=== PATIENT | male | born 1975 | race Caucasian/White ===

== ENCOUNTER 2022-09-26 21:08 | Observation (INO) ==
[2022-09-26 21:58] LABS: Basophils % (auto) 1.2 %; Eosinophils # (auto) 0.37 K/uL (0-0.50); Eosinophils % (auto) 4.3 %; Hematocrit (blood only) 41.2 % (42.0-52.0); Hemoglobin 14.8 g/dl (14.0-18.0); Immature Granulocytes # (auto) 0.02 K/uL (0.01-0.20); Immature Granulocytes % (auto) 0.2 %; Lymphocytes # (auto) 2.76 K/uL (1.2-3.4); Lymphocytes % (auto) 32.2 %; Mean Corpuscular Hemoglobin 32.2 pg (25.0-34.0); Mean Corpuscular Hgb Conc 35.9 g/dL (32.0-36.0); Mean Corpuscular Volume 89.8 fL (80.0-100.0); Mean Platelet Volume 9.5 fL (9.4-12.4); Monocytes # (auto) 0.73 K/uL (0.11-0.59); Monocytes % (auto) 8.5 %; Neutrophils % (auto) 53.6 %; Platelet Count 198 K/uL (130-400); RDW Coefficient of Variation 12.3 % (11.5-14.5); RDW Standard Deviation 40.2 fL (36.4-46.3); Red Blood Count 4.59 M/uL (4.70-6.10); White Blood Count 8.58 K/ul (4.8-10.8)
[2022-09-26] MEDS ORDERED: KETOROLAC TROMETHAMINE 60 MG/2 ML VIAL IM STA (21:59)
[2022-09-26 22:27] LABS: Appearance Urine Clear (Clear); Bilirubin Urine Negative (Negative); Blood Urine Negative (Negative); Color Urine Yellow; Glucose Urine UA Negative (Negative); Ketones Urine Negative (Negative); Leukocyte Esterase Urine Negative (Negative); Nitrite Urine Negative (Negative); Protein Urine Negative (Negative); Specific Gravity Urine 1.025 (1.000-1.030); Urobilinogen Urine Negative (Negative); pH Urine 5.5 (4.5-7.5)
[2022-09-26 22:45] LABS: Albumin Globulin Ratio 1.3 (0.9-2); BUN Creatinine Ratio 17.9 (10-20); Bilirubin,Total 0.4 mg/dl (0.2-1.0); Calcium 8.9 mg/dl (8.6-10.3); Creatinine Clr Calc Pharmacy 158.1 ml/min; Est GFR (African American) 122.6 ml/min; Est GFR (Non-African American) 105.7 ml/min
[2022-09-26] MEDS ORDERED: dexAMETHasone**PF** 10 MG/ML VIAL IV ONE (22:45)
[2022-09-26] MEDS ORDERED: MoRPHine SULFATE 10 MG/ML CARP/VIAL IV STA (22:45)
[2022-09-26] MEDS ORDERED: ONDANSETRON INJ 2 MG/ML 2 ML VIAL IV STA (22:46)
--- NOTE | 2022-09-26 22:51 | Emergency Department Note ---
Impression & Plan Strain of lumbar region, Muscle spasm, Intractable low back pain ED Provider Note CHIEF COMPLAINT: Low back pain HISTORY OF PRESENT ILLNESS: This 46-year-old male patient presents to the [facility] department via ambulance complaining of pain in the low back which began about 1 week ago when he was out digging holes in the yard for poles. The pain was gradual in onset, is now constant and worse with movement. The patient has been having difficulty getting out of bed throughout the day today. He was able to get out of bed and go to the bathroom, but has not wanted to due to the pain and reported spasms. The patient notes the pain as aching and spasming and a 10/10. The patient has taken naproxen without relief of the pain. He states last night, he did take some Flexeril with minimal improvement. The patient denies any loss of control of their bowel or bladder functions. There has been no leg numbness or weakness, and no change in sensation. No nausea or vomiting or abdominal pain. No chest pain or shortness of breath. The patient has been experiencing difficulties with his back since he was in the as a teenager and [facility] He states he normally goes to physical therapy for his pain had prior back injuries with some improvement. He has not scheduled a follow-up appointment yet. No dysuria or increased urinary frequency. The patient denies IV drug use. He denies any difficulty getting or maintaining an erection. REVIEW OF SYSTEMS: A 10 system review of systems was performed with positives and pertinent negatives listed in the history of present illness. All other systems were reviewed and are negative. ALLERGIES: None PHYSICAL EXAM: VITALS: Vitals are noted on the nurse's note and reviewed by myself. Vital signs stable. GENERAL: This is a 46-year-old obese white male, in no acute distress, nondiaphoretic, well-developed well-nourished. SKIN: The skin was without rashes, erythema, edema, or bruising. Capillary refi ll less than 2 seconds. NECK: Supple without nuchal rigidity. No cervical spine tenderness. No paraspinous muscle tenderness. HEART: Regular rate and rhythm without murmurs gallops or rubs. LUNGS: Clear to auscultation bilaterally without wheezes, rales or rhonchi. ABDOMEN: Positive bowel sounds x 4. Normal tympanic percussion. Soft, nontender, without masses or organomegaly. Palmer sign negative. MUSCULOSKELETAL: No muscle atrophy, erythema, or edema noted of the back. There is no tenderness over the lumbar spinous processes. There is tenderness over the paraspinous muscles left greater than right. There is no tenderness over the thoracic spine or paraspinous muscles. There are muscle spasms present. The patient is slow to move around with maximum tenderness with sitting from a lying position. Negative bilateral straight leg raise test. NEURO: Patient was alert and oriented to person place and time. Normal sensation to light and sharp touch. Deep tendon reflexes 2+ in the lower extremities. Dorsalis pedis pulse 2+ bilaterally. Strength 5/5 and equal in the bilateral lower extremities. RADIOLOGY: X-ray lumbar spine, interpreted by myself: No acute fracture or subluxation EMERGENCY DEPARTMENT COURSE: This 46-year-old male patient was seen and evaluated as above. No neurologic symptoms or evidence of cauda equina syndrome or epidural abscess. X-rays performed reviewed by myself as noted. IV access was obtained, labs drawn. Labs reviewed by me. No leukocytosis or anemia. Renal, hepatic function and electrolytes without significant abnormality. Urinalysis without blood or evidence of infection. Patient was medicated with IV Toradol. The patient was subsequently medicated with IV Decadron, morphine, Zofran, and fluids. Nursing staff attempted to ambulate the patient and was unsuccessful. They note the patient reported severe muscle spasms with attempts to ambulate. Patient was medicated with IV Ativan and acetaminophen. Additional attempts made to ambulate the patient. He became diaphoretic and was having difficulty with ambulation again due to complaints of muscle spasms in the low back the patient was monitored here in the emergency department. Multiple attempts were made to repeat ambulation and were unsuccessful. Due to the ambulatory dysfunction and intractable back pain, I do recommend inpatient treatment. The patient [facility] be [facility]. I did discuss case with Dr. Fan. Please see hospitalist dictation regarding ongoing management care of this patient Differential diagnosis include musculoskeletal, disc herniation, fracture, metastatic disease, cord compression, discitis, sciatica, cauda equina, infection, aortic disease, renal colic, gastrointestinal, as well as other pathologies. I attest that I have personally reviewed the patient's current medication list. Patient was found to have normal blood pressure on screening and does not require follow-up. The chart was completed utilizing [employer] Speech voice recognition software. Grammatical errors, random word insertions, pronoun errors, and incomplete sentences are an occasional consequence of this system due to software limitations, ambient noise, and hardware issues. Any formal questions or concerns about the content, text, or information contained within the body of this dictation should be directly addressed to the provider for clarification. Past Med/Surg History Medical History Chronic back pain Social History Smoking Status: Current some day smoker Cigarettes Per Day: 1-2; Second Hand Exposure: Yes; Do You Dip or Chew Tobacco: No; Tobacco Cessation Education Requested by Patient: No Hx Alcohol Use: Yes Alcohol type: beer and wine Hx Substance Use: No Preferred Language: Greenlandic Communication Ability: Effective Meeting Facilitator Required: No Beliefs That Will Affect Care: None Current Living Situation: Spouse and Family Other Information That Helps Us Care for You: No Feels Safe at Home: Yes Safety Concerns: Feels Safe At This Time Assistive Devices: None Allergies Allergies Allergy/AdvReac Type Severity Reaction Status Date / Time No Known Allergies Allergy Unverified 09/26/22 22:45 Home Meds Home Medications Medication Instructions Recorded Confirmed No Known Home Medications 09/26/22 09/26/22 Results & Data (ED) Vital Signs Vital Signs - 24 hr 09/26/22 21:08 09/26/22 21:19 09/26/22 21:20 Temperature 36.8 C Temperature Source Oral Pulse Rate 69 69 Pulse Rate [Right Finger] 65 Pulse Rate from SpO2 Sensor Pulse Rhythm Regular Regular Pulse Strength Normal Respiratory Rate 20 24 19 Respiratory Effort / Characteristics Non-Labored Spontaneous Non-Labored Spontaneous Respiratory Depth Normal Normal Respiratory Pattern Regular Regular Blood Pressure 169/109 H Blood Pressure [Left Arm] 163/109 H Blood Pressure Mean 129 Blood Pressure Mean [Left Arm] 127 Blood Pressure Position Lying Blood Pressure Position [Left Arm] Lying Pulse Oximetry 93 92 91 Oxygen Delivery Method Room Air Room Air Room Air Oxygen Flow Rate Sepsis Recent Fever Within 48 Hours No Sepsis New/Unexplained Change in Mental Status No Sepsis Action Taken by Nursing No Action Required Oxygen Flow Rate - Titration Pulse Oximetry Post Tiitration 09/26/22 21:24 09/26/22 21:16 09/26/22 21:20 Temperature Temperature Source Pulse Rate 69 70 65 Pulse Rate [Right Finger] Pulse Rate from SpO2 Sensor 71 66 Pulse Rhythm Pulse Strength Respiratory Rate 19 25 H 24 Respiratory Effort / Characteristics Respiratory Depth Respiratory Pattern Blood Pressure Blood Pressure [Left Arm] Blood Pressure Mean Blood Pressure Mean [Left Arm] Blood Pressure Position Blood Pressure Position [Left Arm] Pulse Oximetry 91 93 94 Oxygen Delivery Method Room Air Oxygen Flow Rate Sepsis Recent Fever Within 48 Hours Sepsis New/Unexplained Change in Mental Status Sepsis Action Taken by Nursing Oxygen Flow Rate - Titration Pulse Oximetry Post Tiitration 09/26/22 21:30 09/26/22 21:30 09/26/22 21:40 Temperature Temperature Source Pulse Rate 67 68 Pulse Rate [Right Finger] Pulse Rate from SpO2 Sensor 67 67 Pulse Rhythm Pulse Strength Respiratory Rate 21 21 Respiratory Effort / Characteristics Respiratory Depth Respiratory Pattern Blood Pressure 124/83 Blood Pressure [Left Arm] Blood Pressure Mean 96 Blood Pressure Mean [Left Arm] Blood Pressure Position Blood Pressure Position [Left Arm] Pulse Oximetry 92 91 Oxygen Delivery Method Oxygen Flow Rate Sepsis Recent Fever Within 48 Hours Sepsis New/Unexplained Change in Mental Status Sepsis Action Taken by Nursing Oxygen Flow Rate - Titration Pulse Oximetry Post Tiitration 09/26/22 21:50 09/26/22 22:00 09/26/22 22:00 Temperature Temperature Source Pulse Rate 68 64 Pulse Rate [Right Finger] Pulse Rate from SpO2 Sensor 67 65 Pulse Rhythm Pulse Strength Respiratory Rate 25 H 29 H Respiratory Effort / Characteristics Respiratory Depth Respiratory Pattern Blood Pressure 138/90 Blood Pressure [Left Arm] Blood Pressure Mean 106 Blood Pressure Mean [Left Arm] Blood Pressure Position Blood Pressure Position [Left Arm] Pulse Oximetry 91 92 Oxygen Delivery Method Oxygen Flow Rate Sepsis Recent Fever Within 48 Hours Sepsis New/Unexplained Change in Mental Status Sepsis Action Taken by Nursing Oxygen Flow Rate - Titration Pulse Oximetry Post Tiitration 09/26/22 22:10 09/26/22 22:20 09/26/22 22:30 Temperature Temperature Source Pulse Rate 65 66 Pulse Rate [Right Finger] Pulse Rate from SpO2 Sensor 65 67 Pulse Rhythm Pulse Strength Respiratory Rate 23 29 H Respiratory Effort / Characteristics Respiratory Depth Respiratory Pattern Blood Pressure 129/80 Blood Pressure [Left Arm] Blood Pressure Mean 96 Blood Pressure Mean [Left Arm] Blood Pressure Position Blood Pressure Position [Left Arm] Pulse Oximetry 91 90 Oxygen Delivery Method Oxygen Flow Rate Sepsis Recent Fever Within 48 Hours Sepsis New/Unexplained Change in Mental Status Sepsis Action Taken by Nursing Oxygen Flow Rate - Titration Pulse Oximetry Post Tiitration 09/26/22 22:30 09/26/22 22:40 09/26/22 22:50 Temperature Temperature Source Pulse Rate 66 66 64 Pulse Rate [Right Finger] Pulse Rate from SpO2 Sensor 65 65 65 Pulse Rhythm Pulse Strength Respiratory Rate 17 17 20 Respiratory Effort / Characteristics Respiratory Depth Respiratory Pattern Blood Pressure Blood Pressure [Left Arm] Blood Pressure Mean Blood Pressure Mean [Left Arm] Blood Pressure Position Blood Pressure Position [Left Arm] Pulse Oximetry 92 93 93 Oxygen Delivery Method Oxygen Flow Rate Sepsis Recent Fever Within 48 Hours Sepsis New/Unexplained Change in Mental Status Sepsis Action Taken by Nursing Oxygen Flow Rate - Titration Pulse Oximetry Post Tiitration 09/26/22 23:00 09/26/22 23:00 09/26/22 23:10 Temperature Temperature Source Pulse Rate 64 69 Pulse Rate [Right Finger] Pulse Rate from SpO2 Sensor 64 69 Pulse Rhythm Pulse Strength Respiratory Rate 28 H 20 Respiratory Effort / Characteristics Respiratory Depth Respiratory Pattern Blood Pressure 135/77 Blood Pressure [Left Arm] Blood Pressure Mean 96 Blood Pressure Mean [Left Arm] Blood Pressure Position Blood Pressure Position [Left Arm] Pulse Oximetry 93 90 Oxygen Delivery Method Oxygen Flow Rate Sepsis Recent Fever Within 48 Hours Sepsis New/Unexplained Change in Mental Status Sepsis Action Taken by Nursing Oxygen Flow Rate - Titration Pulse Oximetry Post Tiitration 09/26/22 23:28 09/26/22 23:30 09/26/22 23:40 Temperature Temperature Source Pulse Rate 64 63 65 Pulse Rate [Right Finger] Pulse Rate from SpO2 Sensor 64 63 61 Pulse Rhythm Pulse Strength Respiratory Rate 18 20 16 Respiratory Effort / Characteristics Respiratory Depth Respiratory Pattern Blood Pressure Blood Pressure [Left Arm] Blood Pressure Mean Blood Pressure Mean [Left Arm] Blood Pressure Position Blood Pressure Position [Left Arm] Pulse Oximetry 94 90 89 L Oxygen Delivery Method Oxygen Flow Rate Sepsis Recent Fever Within 48 Hours Sepsis New/Unexplained Change in Mental Status Sepsis Action Taken by Nursing Oxygen Flow Rate - Titration Pulse Oximetry Post Tiitration 09/26/22 23:49 09/26/22 23:49 09/26/22 23:50 Temperature Temperature Source Pulse Rate 63 64 Pulse Rate [Right Finger] Pulse Rate from SpO2 Sensor 63 63 Pulse Rhythm Pulse Strength Respiratory Rate 13 14 Respiratory Effort / Characteristics Respiratory Depth Respiratory Pattern Blood Pressure 148/88 H Blood Pressure [Left Arm] Blood Pressure Mean 108 Blood Pressure Mean [Left Arm] Blood Pressure Position Blood Pressure Position [Left Arm] Pulse Oximetry 94 93 Oxygen Delivery Method Oxygen Flow Rate Sepsis Recent Fever Within 48 Hours Sepsis New/Unexplained Change in Mental Status Sepsis Action Taken by Nursing Oxygen Flow Rate - Titration Pulse Oximetry Post Tiitration 09/27/22 00:00 09/27/22 00:00 09/27/22 00:10 Temperature Temperature Source Pulse Rate 58 L 55 L Pulse Rate [Right Finger] Pulse Rate from SpO2 Sensor 59 L 55 L Pulse Rhythm Pulse Strength Respiratory Rate 15 11 L Respiratory Effort / Characteristics Respiratory Depth Respiratory Pattern Blood Pressure 124/81 Blood Pressure [Left Arm] Blood Pressure Mean 95 Blood Pressure Mean [Left Arm] Blood Pressure Position Blood Pressure Position [Left Arm] Pulse Oximetry 93 93 Oxygen Delivery Method Oxygen Flow Rate Sepsis Recent Fever Within 48 Hours Sepsis New/Unexplained Change in Mental Status Sepsis Action Taken by Nursing Oxygen Flow Rate - Titration Pulse Oximetry Post Tiitration 09/27/22 00:20 09/27/22 00:30 09/27/22 00:30 Temperature Temperature Source Pulse Rate 55 L 62 Pulse Rate [Right Finger] Pulse Rate from SpO2 Sensor 56 L 61 Pulse Rhythm Pulse Strength Respiratory Rate 12 14 Respiratory Effort / Characteristics Respiratory Depth Respiratory Pattern Blood Pressure 119/72 Blood Pressure [Left Arm] Blood Pressure Mean 87 Blood Pressure Mean [Left Arm] Blood Pressure Position Blood Pressure Position [Left Arm] Pulse Oximetry 93 95 Oxygen Delivery Method Oxygen Flow Rate Sepsis Recent Fever Within 48 Hours Sepsis New/Unexplained Change in Mental Status Sepsis Action Taken by Nursing Oxygen Flow Rate - Titration Pulse Oximetry Post Tiitration 09/27/22 00:40 09/27/22 00:50 09/27/22 01:11 Temperature Temperature Source Pulse Rate 59 L 68 69 Pulse Rate [Right Finger] Pulse Rate from SpO2 Sensor 59 L 68 Pulse Rhythm Pulse Strength Respiratory Rate 14 16 Respiratory Effort / Characteristics Respiratory Depth Respiratory Pattern Blood Pressure Blood Pressure [Left Arm] Blood Pressure Mean Blood Pressure Mean [Left Arm] Blood Pressure Position Blood Pressure Position [Left Arm] Pulse Oximetry 96 93 Oxygen Delivery Method Oxygen Flow Rate Sepsis Recent Fever Within 48 Hours Sepsis New/Unexplained Change in Mental Status Sepsis Action Taken by Nursing Oxygen Flow Rate - Titration Pulse Oximetry Post Tiitration 09/27/22 02:05 09/27/22 01:00 09/27/22 01:00 Temperature Temperature Source Pulse Rate 64 Pulse Rate [Right Finger] Pulse Rate from SpO2 Sensor 66 Pulse Rhythm Pulse Strength Respiratory Rate 22 Respiratory Effort / Characteristics Respiratory Depth Respiratory Pattern Blood Pressure 124/78 Blood Pressure [Left Arm] Blood Pressure Mean 93 Blood Pressure Mean [Left Arm] Blood Pressure Position Blood Pressure Position [Left Arm] Pulse Oximetry 79 L 88 L Oxygen Delivery Method Room Air Oxygen Flow Rate 0 Sepsis Recent Fever Within 48 Hours Sepsis New/Unexplained Change in Mental Status Sepsis Action Taken by Nursing Oxygen Flow Rate - Titration 2 Pulse Oximetry Post Tiitration 93 09/27/22 01:10 09/27/22 01:20 09/27/22 01:30 Temperature Temperature Source Pulse Rate 69 60 Pulse Rate [Right Finger] Pulse Rate from SpO2 Sensor 69 62 Pulse Rhythm Pulse Strength Respiratory Rate 20 19 Respiratory Effort / Characteristics Respiratory Depth Respiratory Pattern Blood Pressure 112/80 Blood Pressure [Left Arm] Blood Pressure Mean 90 Blood Pressure Mean [Left Arm] Blood Pressure Position Blood Pressure Position [Left Arm] Pulse Oximetry 94 88 L Oxygen Delivery Method Oxygen Flow Rate Sepsis Recent Fever Within 48 Hours Sepsis New/Unexplained Change in Mental Status Sepsis Action Taken by Nursing Oxygen Flow Rate - Titration Pulse Oximetry Post Tiitration 09/27/22 01:30 09/27/22 01:40 09/27/22 01:50 Temperature Temperature Source Pulse Rate 64 71 60 Pulse Rate [Right Finger] Pulse Rate from SpO2 Sensor 67 58 L Pulse Rhythm Pulse Strength Respiratory Rate 20 24 14 Respiratory Effort / Characteristics Respiratory Depth Respiratory Pattern Blood Pressure Blood Pressure [Left Arm] Blood Pressure Mean Blood Pressure Mean [Left Arm] Blood Pressure Position Blood Pressure Position [Left Arm] Pulse Oximetry 92 92 Oxygen Delivery Method Oxygen Flow Rate Sepsis Recent Fever Within 48 Hours Sepsis New/Unexplained Change in Mental Status Sepsis Action Taken by Nursing Oxygen Flow Rate - Titration Pulse Oximetry Post Tiitration 09/27/22 02:00 09/27/22 02:00 09/27/22 02:10 Temperature Temperature Source Pulse Rate 66 61 Pulse Rate [Right Finger] Pulse Rate from SpO2 Sensor 62 62 Pulse Rhythm Pulse Strength Respiratory Rate 20 18 Respiratory Effort / Characteristics Respiratory Depth Respiratory Pattern Blood Pressure 119/64 Blood Pressure [Left Arm] Blood Pressure Mean 82 Blood Pressure Mean [Left Arm] Blood Pressure Position Blood Pressure Position [Left Arm] Pulse Oximetry 84 L 93 Oxygen Delivery Method Oxygen Flow Rate Sepsis Recent Fever Within 48 Hours Sepsis New/Unexplained Change in Mental Status Sepsis Action Taken by Nursing Oxygen Flow Rate - Titration Pulse Oximetry Post Tiitration 09/27/22 02:20 09/27/22 02:30 09/27/22 02:30 Temperature Temperature Source Pulse Rate 68 61 Pulse Rate [Right Finger] Pulse Rate from SpO2 Sensor 68 61 Pulse Rhythm Pulse Strength Respiratory Rate 18 16 Respiratory Effort / Characteristics Respiratory Depth Respiratory Pattern Blood Pressure 116/76 Blood Pressure [Left Arm] Blood Pressure Mean 89 Blood Pressure Mean [Left Arm] Blood Pressure Position Blood Pressure Position [Left Arm] Pulse Oximetry 93 89 L Oxygen Delivery Method Oxygen Flow Rate Sepsis Recent Fever Within 48 Hours Sepsis New/Unexplained Change in Mental Status Sepsis Action Taken by Nursing Oxygen Flow Rate - Titration Pulse Oximetry Post Tiitration 09/27/22 02:40 09/27/22 02:50 09/27/22 03:02 Temperature Temperature Source Pulse Rate 62 62 Pulse Rate [Right Finger] 63 Pulse Rate from SpO2 Sensor 63 62 Pulse Rhythm Pulse Strength Respiratory Rate 19 17 20 Respiratory Effort / Characteristics Non-Labored Spontaneous Respiratory Depth Normal Respiratory Pattern Blood Pressure Blood Pressure [Left Arm] 107/72 Blood Pressure Mean Blood Pressure Mean [Left Arm] 83 Blood Pressure Position Blood Pressure Position [Left Arm] Sitting Pulse Oximetry 93 95 96 Oxygen Delivery Method Nasal Cannula Oxygen Flow Rate 2 Sepsis Recent Fever Within 48 Hours Sepsis New/Unexplained Change in Mental Status Sepsis Action Taken by Nursing Oxygen Flow Rate - Titration Pulse Oximetry Post Tiitration Laboratory Data 09/26/22 21:23 09/26/22 21:23 Lab Results 09/26/22 09/26/22 09/26/22 Range/Units 21:23 21:23 22:07 WBC 8.58 (4.8-10.8) K/ul RBC 4.59 L (4.70-6.10) M/uL Hgb 14.8 (14.0-18.0) g/dl Hct 41.2 L (42.0-52.0) % MCV 89.8 (80.0-100.0) fL MCH 32.2 (25.0-34.0) pg MCHC 35.9 (32.0-36.0) g/dL RDW Std Deviation 40.2 (36.4-46.3) fL RDW Coeff of Marg[place] 12.3 (11.5-14.5) % Plt Count 198 (130-400) K/uL MPV 9.5 (9.4-12.4) fL Immature Gran % (Auto) 0.2 % Neut % (Auto) 53.6 % Lymph % (Auto) 32.2 % [place] % (Auto) 8.5 % Eos % (Auto) 4.3 % Baso % (Auto) 1.2 % Neut # (Auto) 4.60 (1.40-6.50) K/uL Lymph # (Auto) 2.76 (1.2-3.4) K/uL [place] # (Auto) 0.73 H (0.11-0.59) K/uL Eos # (Auto) 0.37 (0-0.50) K/uL Baso # (Auto) 0.10 (0-0.2) K/uL Immature Gran # (Auto) 0.02 (0.01-0.20) K/uL Sodium 139 (136-145) mmol/L Potassium 4.0 (3.5-5.1) mmol/L Chloride 107 (98-107) mmol/L Carbon Dioxide 26 (21-32) mmol/L Anion Gap 6 (3-11) BUN 15 (6-23) mg/dl Creatinine 0.84 (0.6-1.4) mg/dl Est Cr Clr Drug Dosing 158.1 ml/min Est GFR ( Amer) 122.6 ml/min Est GFR (Non-Af Amer) 105.7 ml/min BUN/Creatinine Ratio 17.9 (10-20) Glucose 90 (70-99(Fasting)) mg/dl Calcium 8.9 (8.6-10.3) mg/dl Total Bilirubin 0.4 (0.2-1.0) mg/dl AST 24 (13-39) U/L ALT 45 (7-52) U/L Alkaline Phosphatase 47 (34-104) U/L Total Protein 7.0 (6.0-8.3) gm/dl Albumin 4.0 (3.4-5.0) gm/dl Globulin 3.0 (2.5-4.0) gm/dl Albumin/Globulin Ratio 1.3 (0.9-2) Urine Color Yellow Urine Appearance Clear (Clear) Urine pH 5.5 (4.5-7.5) Ur Specific Jack 1.025 (1.000-1.030) Urine Protein Negative (Negative) Urine Glucose (UA) Negative (Negative) Urine Ketones Negative (Negative) Urine Blood Negative (Negative) Urine Nitrite Negative (Negative) Urine Bilirubin Negative (Negative) Urine Urobilinogen Negative (Negative) Ur Leukocyte Esterase Negative (Negative) SARS-CoV-2, RNA, NAAT (NEGATIVE) 09/27/22 Range/Units 02:11 WBC (4.8-10.8) K/ul RBC (4.70-6.10) M/uL Hgb (14.0-18.0) g/dl Hct (42.0-52.0) % MCV (80.0-100.0) fL MCH (25.0-34.0) pg MCHC (32.0-36.0) g/dL RDW Std Deviation (36.4-46.3) fL RDW Coeff of [place] (11.5-14.5) % Plt Count (130-400) K/uL MPV (9.4-12.4) fL Immature Gran % (Auto) % Neut % (Auto) % Lymph % (Auto) % [place] % (Auto) % Eos % (Auto) % Baso % (Auto) % Neut # (Auto) (1.40-6.50) K/uL Lymph # (Auto) (1.2-3.4) K/uL [place] # (Auto) (0.11-0.59) K/uL Eos # (Auto) (0-0.50) K/uL Baso # (Auto) (0-0.2) K/uL Immature Gran # (Auto) (0.01-0.20) K/uL Sodium (136-145) mmol/L Potassium (3.5-5.1) mmol/L Chloride (98-107) mmol/L Carbon Dioxide (21-32) mmol/L Anion Gap (3-11) BUN (6-23) mg/dl Creatinine (0.6-1.4) mg/dl Est Cr Clr Drug Dosing ml/min Est GFR ( Amer) ml/min Est GFR (Non-Af Amer) ml/min BUN/Creatinine Ratio (10-20) Glucose (70-99(Fasting)) mg/dl Calcium (8.6-10.3) mg/dl Total Bilirubin (0.2-1.0) mg/dl AST (13-39) U/L ALT (7-52) U/L Alkaline Phosphatase (34-104) U/L Total Protein (6.0-8.3) gm/dl Albumin (3.4-5.0) gm/dl Globulin (2.5-4.0) gm/dl Albumin/Globulin Ratio (0.9-2) Urine Color Urine Appearance (Clear) Urine pH (4.5-7.5) Ur Specific Jack (1.000-1.030) Urine Protein (Negative) Urine Glucose (UA) (Negative) Urine Ketones (Negative) Urine Blood (Negative) Urine Nitrite (Negative) Urine Bilirubin (Negative) Urine Urobilinogen (Negative) Ur Leukocyte Esterase (Negative) SARS-CoV-2, RNA, NAAT NEGATIVE (NEGATIVE) Administered Medications Acetaminophen (Acetaminophen 325 Mg Tab) 650 mg PO Q6H PRN PRN Reason: Fever/pain Stop: 10/27/22 03:59 Last Admin: 09/27/22 07:53 Dose: 650 mg Documented By: BOGDAN Ketorolac Tromethamine (Ketorolac Tromethamine 15 Mg/Ml Vial) 15 mg IV Q6H PRN PRN Reason: Pain Stop: 10/02/22 03:30 Last Admin: 09/27/22 10:18 Dose: 15 mg Documented By: BOGDAN Lidocaine (Lidocaine 5% 1 Patch) 1 patch TD QAM [facility] Stop: 10/27/22 03:59 Last Admin: 09/27/22 04:14 Dose: 1 patch Documented By: MAJO Miscellaneous (Remove Lidoderm Patch) 1 each N/A PM [facility] Stop: 10/27/22 15:59 Last Admin: 09/27/22 15:37 Dose: 1 each Documented By: BOGDAN Discontinued Medications Dexamethasone Sodium Phosphate (DexamethasonePf 10 Mg/Ml Vial) 10 mg IV NOW ONE Stop: 09/26/22 22:46 Last Admin: 09/26/22 22:52 Dose: 10 mg Documented By: DEANNA Acetaminophen (Ofirmev) 1,000 mg in 100 mls @ 400 mls/hr IV NOW STA Stop: 09/27/22 01:59 Last Infusion: 09/27/22 02:53 Dose: 0 mls/hr Documented By: Admin: 09/27/22 02:10 Dose: 400 mls/hr Documented By: ORE FEEDER Sodium Chloride (Nss 1000ml) 1,000 mls @ 100 mls/hr IV .Q10H ONE Stop: 09/27/22 13:34 Last Infusion: 09/27/22 14:20 Dose: 0 mls/hr Documented By: Admin: 09/27/22 03:44 Dose: 100 mls/hr Documented By: CC Ketorolac Tromethamine (Ketorolac Tromethamine 60 Mg/2 Ml Vial) 15 mg IM NOW STA Stop: 09/26/22 22:00 Last Admin: 09/26/22 22:08 Dose: 15 mg Documented By: ORE FEEDER Lorazepam (Lorazepam 2 Mg/1 Ml Vial) 1 mg IV NOW STA Stop: 09/27/22 00:29 Last Admin: 09/27/22 00:50 Dose: 1 mg Documented By: ORE FEEDER Morphine Sulfate (Morphine Sulfate 10 Mg/Ml Carp/Vial) 8 mg IV NOW STA Stop: 09/26/22 22:46 Last Admin: 09/26/22 22:52 Dose: 8 mg Documented By: ORE FEEDER Ondansetron HCl (Ondansetron Inj 2 Mg/Ml 2 Ml Vial) 4 mg IV NOW STA Stop: 09/26/22 22:47 Last Admin: 09/26/22 22:52 Dose: 4 mg Documented By: ORE FEEDER Imaging Data Radiologist's Impression: Lumbar Spine X-Ray 09/26/22 22:45 LUMBAR SPINE 3 VIEWS CLINICAL HISTORY: Low back pain. FINDINGS: 3 views of the lumbar spine are obtained. No prior studies are available for comparison at the time of dictation. The skeletal structures are well mineralized. There is no radiographic evidence of fracture or malalignment. Vertebral body height and alignment are maintained throughout the lumbar spine. Small anterior and lateral marginal osteophytes are seen throughout. The transverse and spinous processes appear intact. There is mild to moderate disc space narrowing at L5-S1. The remaining disc spaces appear maintained. The visualized bony pelvis appears intact. No bowel obstruction is seen. IMPRESSION: No acute bony abnormality is seen involving the lumbar spine. Dictated: 09/27/2022 6:59 AM Transcribed: 09/27/2022 7:13 AM Jaimie [id number] Electronically signed by: Terence Ortiz M.D. 09/27/2022 7:15 AM Lumbar Spine MRI 09/27/22 03:56 MR lumbar spine wo con CLINICAL HISTORY: intractable back pain TECHNIQUE: Multiplanar sequences through the lumbar spine were obtained, without intravenous contrast. Comparison: Comparison is made to lumbar spine radiographs 09/26/2022 FINDINGS: The alignment is anatomical. L1-L2: No significant abnormality. L2-L3: Left greater than right posterior disc bulge is seen with mild canal stenosis and mild neuroforaminal stenosis on the left. L3-L4: Broad-based posterior disc bulge is seen with mild bilateral neural foraminal stenosis. L4-L5: Broad-based posterior disc bulge is seen with moderate to severe bilateral neural foraminal stenosis. L5-S1: No significant abnormality. The spinal ligaments are intact, without evidence of disruption or abnormal signal intensity. The spinal cord is normal in signal intensity and there is no evidence of cord contusion. There is no evidence of an extradural, intradural, extramedullary or intramedullary lesion. Visualized soft tissues are normal. IMPRESSION: Multilevel degenerative changes are seen with up to mild canal stenosis and moderate to severe bilateral neural foraminal stenosis. ACT 112: Negative or not required by law. Electronically signed by: Evans Humphrey M.D. 09/27/2022 11:10 AM Discharge Plan Visit Data Chief Complaint: Back Injury/Pain Stated Complaint: BACK PAIN ED Provider: Kwaku Johnson ED Midlevel Provider: Sandra Shrestha Discharge Problem: Strain of lumbar region, Muscle spasm, Intractable low back pain Patient Disposition: Admitted As Inpatient Discharge Instructions Interventions: ED Discharge Assessment Last Done: 09/27/22 05:13
[2022-09-27] MEDS ORDERED: LORazepam 2 MG/1 ML VIAL IV STA (00:28)
[2022-09-27] MEDS ORDERED: ACETAMINOPHEN 1,000 MG/100 ML VIAL IV STA (01:45)
[2022-09-27] MEDS ORDERED: KETOROLAC TROMETHAMINE 15 MG/ML VIAL IV PRN (03:31)
[2022-09-27] MEDS ORDERED: SODIUM CHLORIDE 0.9% 1000ML 1,000 ML IV ONE (03:35)
[2022-09-27] MEDS ORDERED: PROMETHAZINE HCL 12.5 MG in SODIUM CHLORIDE 0.9% 50 ML IV PRN (04:00)
[2022-09-27] MEDS ORDERED: ACETAMINOPHEN 325 MG TAB PO PRN (04:00)
[2022-09-27] MEDS ORDERED: oxyCODONE HCL IR 5 MG TAB (IMMEDIATE RELEASE) PO PRN (04:00)
[2022-09-27] MEDS ORDERED: LORazepam 0.5 MG TAB PO PRN (04:00)
--- NOTE | 2022-09-27 04:01 | History & Physical Report ---
Date of Service September 27, 2022 Assessment & Plan (1) Intractable low back pain: Plan: Acute on chronic back pain Currently with radiculopathy symptoms Ongoing tobacco abuse OBS GMF Analgesia MRI lumbosacral spine Further management pending MRI results Nicotine patch as needed DVT prophylaxis. SCDs Re: Possible procedural intervention Full code Text document was generated using View [employer] voice recognition software. It may contain grammatical or spelling errors. Kindly contact undersigned for clarification of any documentation item in question. History of Present Illness Chief Complaint: Worsening back pain Primary Care Provider: Robert Pugh MD History obtained from patient and records. Medical history significant for chronic back pain, ongoing tobacco abuse. Patient has had chronic back pain for more than 20 years. Attributed to trauma from duty. Patient was told by different specialist that he had the "back of an old man" and that surgery might lead to him getting crippled. Last week, patient noted work worsening of chronic low back pain while in holes in his yard to set up some poles. Worsening pain over the last few days radiating to the left lower leg with weakness. No incontinence, no fever, no chills. No headache, no chest pain, no SOB. Intractable discomfort at the ER. Medical History as above Surgical History : knee surgery Family History : Heart disease Personal/Social history : Few cigarettes now and then, occasional EtOH intake, factory employee Allergies Allergy/AdvReac Type Severity Reaction Status Date / Time No Known Allergies Allergy Unverified 09/26/22 22:45 Home Medications Medication Instructions Recorded Confirmed Type No Known Home Medications 09/26/22 09/26/22 History Past Med/Surg History Medical History Chronic back pain Social History Smoking Status: Current some day smoker Cigarettes Per Day: 1-2; Second Hand Exposure: Yes; Do You Dip or Chew Tobacco: No; Tobacco Cessation Education Requested by Patient: No Hx Alcohol Use: Yes Alcohol type: beer and wine Hx Substance Use: No Preferred Language: Occitan Communication Ability: Effective Car Repairer Required: No Beliefs That Will Affect Care: None Current Living Situation: Spouse and Family Other Information That Helps Us Care for You: No Feels Safe at Home: Yes Safety Concerns: Feels Safe At This Time Assistive Devices: None Review of Systems Review of Systems: As per HPI, all other systems reviewed and negative Physical Exam Physical Exam: GENERAL: Slightly uncomfortable, obese, looks older than stated age, no respiratory distress SKIN: Normal color, warm HEENT: [place] palpebral conjunctivae, no ptosis, dry buccal mucosa NECK : Supple, short neck, no tenderness CHEST : Decreased breath sounds, no tenderness HEART : RRR, no obvious murmurs ABDOMEN: Some distention, nontender BACK : Low back tenderness with positive SLR, left EXTREMITIES : Minimal LE swelling, no LE tenderness, no other conspicuous deformities noted NEUROLOGIC : Coherent, no facial asymmetry, no other gross focality Results & Data Results & Data Vital Signs (Past 12 Hours) Vital Signs Temp Pulse Pulse Resp BP BP Pulse Ox 09/27/22 03:02 63 20 107/72 96 09/27/22 02:50 62 17 95 09/27/22 02:40 62 19 93 09/27/22 02:30 61 16 89 L 09/27/22 02:30 116/76 09/27/22 02:20 68 18 93 09/27/22 02:10 61 18 93 09/27/22 02:00 66 20 84 L 09/27/22 02:00 119/64 09/27/22 01:50 60 14 92 09/27/22 01:40 71 24 09/27/22 01:30 64 20 92 09/27/22 01:30 112/80 09/27/22 01:20 60 19 88 L 09/27/22 01:10 69 20 94 09/27/22 01:00 64 22 88 L 09/27/22 01:00 124/78 09/27/22 02:05 79 L 09/27/22 01:11 69 09/27/22 00:50 68 16 93 09/27/22 00:40 59 L 14 96 09/27/22 00:30 62 14 95 09/27/22 00:30 119/72 09/27/22 00:20 55 L 12 93 09/27/22 00:10 55 L 11 L 93 09/27/22 00:00 58 L 15 93 09/27/22 00:00 124/81 09/26/22 23:50 64 14 93 09/26/22 23:49 63 13 94 09/26/22 23:49 148/88 H 09/26/22 23:40 65 16 89 L 09/26/22 23:30 63 20 90 09/26/22 23:28 64 18 94 09/26/22 23:10 69 20 90 09/26/22 23:00 64 28 H 93 09/26/22 23:00 135/77 09/26/22 22:50 64 20 93 09/26/22 22:40 66 17 93 09/26/22 22:30 66 17 92 09/26/22 22:30 129/80 09/26/22 22:20 66 29 H 90 09/26/22 22:10 65 23 91 09/26/22 22:00 64 29 H 92 09/26/22 22:00 138/90 09/26/22 21:50 68 25 H 91 09/26/22 21:40 68 21 91 09/26/22 21:30 67 21 92 09/26/22 21:30 124/83 09/26/22 21:20 65 24 94 09/26/22 21:16 70 25 H 93 09/26/22 21:24 69 19 91 09/26/22 21:20 69 19 91 09/26/22 21:19 65 24 163/109 H 92 09/26/22 21:08 36.8 C 69 20 169/109 H 93 O2 Del Method O2 Flow Rate 09/27/22 03:02 Nasal Cannula 2 09/27/22 02:50 09/27/22 02:40 09/27/22 02:30 09/27/22 02:30 09/27/22 02:20 09/27/22 02:10 09/27/22 02:00 09/27/22 02:00 09/27/22 01:50 09/27/22 01:40 09/27/22 01:30 09/27/22 01:30 09/27/22 01:20 09/27/22 01:10 09/27/22 01:00 09/27/22 01:00 09/27/22 02:05 Room Air 0 09/27/22 01:11 09/27/22 00:50 09/27/22 00:40 09/27/22 00:30 09/27/22 00:30 09/27/22 00:20 09/27/22 00:10 09/27/22 00:00 09/27/22 00:00 09/26/22 23:50 09/26/22 23:49 09/26/22 23:49 09/26/22 23:40 09/26/22 23:30 09/26/22 23:28 09/26/22 23:10 09/26/22 23:00 09/26/22 23:00 09/26/22 22:50 09/26/22 22:40 09/26/22 22:30 09/26/22 22:30 09/26/22 22:20 09/26/22 22:10 09/26/22 22:00 09/26/22 22:00 09/26/22 21:50 09/26/22 21:40 09/26/22 21:30 09/26/22 21:30 09/26/22 21:20 09/26/22 21:16 09/26/22 21:24 Room Air 09/26/22 21:20 Room Air 09/26/22 21:19 Room Air 09/26/22 21:08 Room Air Laboratory Results Laboratory Results WBC 8.58 K/ul (4.8-10.8) 09/26/22 21: RBC 4.59 M/uL (4.70-6.10) L 09/26/22 21: Hgb 14.8 g/dl (14.0-18.0) 09/26/22 21: Hct 41.2 % (42.0-52.0) L 09/26/22: MCV 89.8 fL (80.0-100.0) 09/26/22 21: MCH 32.2 pg (25.0-34.0) 09/26/22 21: MCHC 35.9 g/dL (32.0-36.0) 09/26/22: RDW Std Deviation 40.2 fL (36.4-46.3) 09/26/22 21: RDW Coeff of [place] 12.3 % (11.5-14.5) 09/26/22 21: Plt Count 198 K/uL (130-400) 09/26/22 21: MPV 9.5 fL (9.4-12.4) 09/26/22: Immature Gran % (Auto) 0.2 % 09/26/22 21: Neut % (Auto) 53.6 % 09/26/22: Lymph % (Auto) 32.2 % 09/26/22: [place] % (Auto) 8.5 % 09/26/22: Eos % (Auto) 4.3 % 09/26/22: Baso % (Auto) 1.2 % 09/26/22: Neut # (Auto) 4.60 K/uL (1.40-6.50) 09/26/22: Lymph # (Auto) 2.76 K/uL (1.2-3.4) 09/26/22: [place] # (Auto) 0.73 K/uL (0.11-0.59) H 09/26/22: Eos # (Auto) 0.37 K/uL (0-0.50) 09/26/22: Baso # (Auto) 0.10 K/uL (0-0.2) 09/26/22: Immature Gran # (Auto) 0.02 K/uL (0.01-0.20) 09/26/22: Sodium 139 mmol/L (136-145) 09/26/22: Potassium 4.0 mmol/L (3.5-5.1) 09/26/22: Chloride 107 mmol/L (98-107) 09/26/22: Carbon Dioxide 26 mmol/L (21-32) 09/26/22: Anion Gap 6 (3-11) 09/26/22: BUN 15 mg/dl (6-23) 09/26/22: Creatinine 0.84 mg/dl (0.6-1.4) 09/26/22: Est Cr Clr Drug Dosing 158.1 ml/min 09/26/22: Est GFR ( Amer) 122.6 ml/min 09/26/22: Est GFR (Non-Af Amer) 105.7 ml/min 09/26/22: BUN/Creatinine Ratio 17.9 (10-20) 09/26/22: Glucose 90 mg/dl (70-99(Fasting)) 09/26/22 21: Calcium 8.9 mg/dl (8.6-10.3) 09/26/22: Total Bilirubin 0.4 mg/dl (0.2-1.0) 09/26/22 21: AST 24 U/L (13-39) 09/26/22: ALT 45 U/L (7-52) 09/26/22: Alkaline Phosphatase 47 U/L (34-104) 09/26/22: Total Protein 7.0 gm/dl (6.0-8.3) 09/26/22: Albumin 4.0 gm/dl (3.4-5.0) 09/26/22: Globulin 3.0 gm/dl (2.5-4.0) 09/26/22: Albumin/Globulin Ratio 1.3 (0.9-2) 09/26/22 21: Urine Color Yellow 09/26/22 22:07 Urine Appearance Clear (Clear) 09/26/22 22:07 Urine pH 5.5 (4.5-7.5) 09/26/22 22:07 Ur Specific [place] 1.025 (1.000-1.030) 09/26/22 22:07 Urine Protein Negative (Negative) 09/26/22 22:07 Urine Glucose (UA) Negative (Negative) 09/26/22 22:07 Urine Ketones Negative (Negative) 09/26/22 22:07 Urine Blood Negative (Negative) 09/26/22 22:07 Urine Nitrite Negative (Negative) 09/26/22 22:07 Urine Bilirubin Negative (Negative) 09/26/22 22:07 Urine Urobilinogen Negative (Negative) 09/26/22 22:07 Ur Leukocyte Esterase Negative (Negative) 09/26/22 22:07 SARS-CoV-2, RNA, NAAT NEGATIVE (NEGATIVE) 09/27/22 02:11 Diagnostic Findings Lumbar spine x-ray read pending Code Status & VTE Plan VTE Prophylaxis Plan VTE Prophylaxis will be ordered: Yes
[2022-09-27] MEDS: LIDOCAINE 5% 1 PATCH TD SCH (04:14)
--- NOTE | 2022-09-27 07:16 | XRay Report ---
LUMBAR SPINE 3 VIEWS CLINICAL HISTORY: Low back pain. FINDINGS: 3 views of the lumbar spine are obtained. No prior studies are available for comparison at the time of dictation. The skeletal structures are well mineralized. There is no radiographic evidenc e of fracture or malalignment. Vertebral body height and alignment are maintained throughout the lumb ar spine. Small anterior and lateral marginal osteophytes are seen throughout. The transverse and spi nous processes appear intact. There is mild to moderate disc space narrowing at L5-S1. The remaining disc spaces appear maintained. The visualized bony pelvis appears intact. No bowel obstruction is see n. IMPRESSION: No acute bony abnormality is seen involving the lumbar spine. Dictated: 09/27/2022 6:59 AM Transcribed: 09/27/2022 7:13 AM Jaimie [id number] Electronically signed by: Terence Ortiz M.D. 09/27/2022 7:15 AM
--- NOTE | 2022-09-27 09:07 | XRay Report ---
BONY ORBITS 3 VIEWS CLINICAL HISTORY: MRI clearance. FINDINGS: 3 views of the bony orbits are obtained. No prior studies are available for comparison at t he time of dictation. There is no radiodense/metallic foreign body seen in the region of the bony orb its. The bony orbits are intact as imaged. The visualized paranasal sinuses and the mastoid air cells appear clear. The imaged calvarium appears intact. IMPRESSION: There is no radiodense/metallic foreign body seen in the region of the bony orbits. ACT 112: Negative or not required by law. Electronically signed by: Terence Ortiz M.D. 09/27/2022 9:04 AM
--- NOTE | 2022-09-27 11:13 | Magnetic Resonance Report ---
MR lumbar spine wo con CLINICAL HISTORY: intractable back pain TECHNIQUE: Multiplanar sequences through the lumbar spine were obtained, without intravenous contrast . Comparison: Comparison is made to lumbar spine radiographs 09/26/2022 FINDINGS: The alignment is anatomical. L1-L2: No significant abnormality. L2-L3: Left greater than right posterior disc bulge is seen with mild canal stenosis and mild neurofo raminal stenosis on the left. L3-L4: Broad-based posterior disc bulge is seen with mild bilateral neural foraminal stenosis. L4-L5: Broad-based posterior disc bulge is seen with moderate to severe bilateral neural foraminal st enosis. L5-S1: No significant abnormality. The spinal ligaments are intact, without evidence of disruption or abnormal signal intensity. The spi nal cord is normal in signal intensity and there is no evidence of cord contusion. There is no eviden ce of an extradural, intradural, extramedullary or intramedullary lesion. Visualized soft tissues are normal. IMPRESSION: Multilevel degenerative changes are seen with up to mild canal stenosis and moderate to severe bilate ral neural foraminal stenosis. ACT 112: Negative or not required by law. Electronically signed by: Evans Humphrey M.D. 09/27/2022 11:10 AM
--- NOTE | 2022-09-27 15:45 | Communication Note ---
Date of Service: September 27, 2022 Patient was admitted earlier today (see H&P note for details of admission). Patient was seen and examined at bedside. He presented with intractable back pain, currently improved after analgesics. MRI lumbar spine shows Multilevel degenerative changes are seen with up to mild canal stenosis and moderate to severe bilateral neural foraminal stenosis . He denies any bowel bladder issues or lower extremity numbness weakness or tingling. On exam, vitals stable. lying comfortably in bed on NC. Morbidly obese. Chest clear, heart sounds normal, abd benign, no LE edema, neuro exam nonfocal. Continue pain management. Consult orthopedics for evaluation. PT/OT evaluation. Detailed progress note will be written by incoming hospitalist tomorrow.
[2022-09-28] MEDS: LIDOCAINE 5% 1 PATCH TD SCH (08:26)
--- NOTE | 2022-09-28 10:17 | Consultation ---
Date of Consultation September 28, 2022 Assessment & Plan (1) Intractable low back pain: This morning Mr. Brenner pain is greatly improved. He is up and ambulatory. Pain is now controlled. This is most likely muscular strain. Would not recommend any type of acute surgical intervention. Activity as tolerated. He reports he is going to start some physical therapy this morning. He is orthopedically stable for discharge. Continued follow-up with the [facility] as needed. I will sign off. History of Present Illness Reason for Consultation: Back pain Attending Physician: Jan San MD History of Present Illness Is a pleasant 46-year-old gentleman who has had chronic back pain dating back to the age of 19. He typically follows with the [facility] for this issue. It is always been managed conservatively. He states 2 days ago he had an episode of severe lower back pain. He is unable to ambulate or move. His therefore took him to the emergency room with subsequent admission. Denies any radicular pain. Denies bowel or bladder changes. Typically ambulates independently. When he does have a flareup at home he will take muscle relaxants. This morning he rates his pain to be a 1 out of 10. He is up and ambulatory around the room and voiding without issue. Allergies Allergy/AdvReac Type Severity Reaction Status Date / Time No Known Allergies Allergy Unverified 09/26/22 22:45 Home Medications Medication Instructions Recorded Confirmed Type No Known Home Medications 09/26/22 09/26/22 History Patient History Medical History Chronic back pain Social History Smoking Status: Current some day smoker Cigarettes Per Day: 1-2; Second Hand Exposure: Yes; Do You Dip or Chew Tobacco: No; Tobacco Cessation Education Requested by Patient: No Hx Alcohol Use: Yes Alcohol type: beer and wine Hx Substance Use: No Preferred Language: Estonian Communication Ability: Effective Ferryboat Captain Required: No Beliefs That Will Affect Care: None Current Living Situation: Spouse and Family Other Information That Helps Us Care for You: No Feels Safe at Home: Yes Safety Concerns: Feels Safe At This Time Assistive Devices: None Review of Systems Review of Systems: All systems reviewed & are unremarkable except as noted in HPI & below Physical Exam Physical Exam: Patient sitting up in bed in no acute distress He is able to move with ease for me. He is nontender to position of the midline thoracolumbar spine He is nontender over the sciatic notch regions bilaterally Negative logrolling bilateral lower extremity Negative tension signs bilateral lower extremity Motor testing is 5 5 bilateral EHL, dorsiflexion, plantarflexion, quadriceps, hamstrings, hip flexors, hip abductor's and hip adductor's. Constitutional: WD/WN, vitals as above Eyes: normal visual cherry by confrontation ENMT: external ear and nose normal, oropharynx normal Neck: normal visual inspection Respiratory: normal respiratory effort Cardiovascular: Extremities: normal capillary refill Gastrointestinal (Abdomen): Inspection/Auscultation: abdomen normal to inspection Musculoskeletal: Extremities: extremities normal to inspection and strength 5/5 throughout Skin: no rashes, warm and dry Neurologic: normal touch/pain/proprioception and moves all extremities Psychiatric: A+Ox3, euthymic affect Eye Contact: good eye contact Results & Data Vital Signs (Past 12 Hours) Vital Signs Temp Pulse Resp BP Pulse Ox O2 Del Method 09/28/22 08:25 Room Air 09/28/22 07:28 36.7 C 70 16 149/84 H 94 Room Air Diagnostic Findings [place], [place] [phone] Magnetic Resonance Report Patient:CARTER ARNETT Admit Date:09/27/22 MR#:[id number] Address1:[address] [place] [address] Acct ID:[id number] Address2: Date:1975 [facility] Zip:[place] [address] Age:46 Location:3E Sex:M Room/Bed:[facility] Att Phy:Matti Lopez MD Diagnosis:BACK PAIN Natali Phy:Robert Pugh MD Service Date:09/27/22 Fam Phy: Interpreting Phy:Evans Humphrey [facility] Phy:Bj Fan MD Ordering Phy:Bj Fan MD cc: ~ MR lumbar spine wo con CLINICAL HISTORY: intractable back pain TECHNIQUE: Multiplanar sequences through the lumbar spine were obtained, without intravenous contrast. Comparison: Comparison is made to lumbar spine radiographs 09/26/2022 FINDINGS: The alignment is anatomical. L1-L2: No significant abnormality. L2-L3: Left greater than right posterior disc bulge is seen with mild canal stenosis and mild neuroforaminal stenosis on the left. L3-L4: Broad-based posterior disc bulge is seen with mild bilateral neural foraminal stenosis. L4-L5: Broad-based posterior disc bulge is seen with moderate to severe bilateral neural foraminal stenosis. L5-S1: No significant abnormality. The spinal ligaments are intact, without evidence of disruption or abnormal signal intensity. The spinal cord is normal in signal intensity and there is no evidence of cord contusion. There is no evidence of an extradural, intradural, extramedullary or intramedullary lesion. Visualized soft tissues are normal. IMPRESSION: Multilevel degenerative changes are seen with up to mild canal stenosis and moderate to severe bilateral neural foraminal stenosis. ACT 112: Negative or not required by law. Electronically signed by: Evans Humphrey M.D. 09/27/2022 11:10 AM Dictated:09/27/22 1106 Transcribed: 09/27/22 1106
--- NOTE | 2022-09-28 13:20 | Discharge Summary ---
Date of Service September 28, 2022 Admission HPI Per Admitting Provider History obtained from patient and records. Medical history significant for chronic back pain, ongoing tobacco abuse. Patient has had chronic back pain for more than 20 years. Attributed to trauma from duty. Patient was told by different specialist that he had the "back of an old man" and that surgery might lead to him getting crippled. Last week, patient noted work worsening of chronic low back pain while in holes in his yard to set up some poles. Worsening pain over the last few days radiating to the left lower leg with weakness. No incontinence, no fever, no chills. No headache, no chest pain, no SOB. Intractable discomfort at the ER. Medical History as above Surgical History : knee surgery Family History : Heart disease Personal/Social history : Few cigarettes now and then, occasional EtOH intake, factory employee Admission Exam Per Admitting Provider GENERAL: Slightly uncomfortable, obese, looks older than stated age, no respiratory distress SKIN: Normal color, warm HEENT: [place] palpebral conjunctivae, no ptosis, dry buccal mucosa NECK : Supple, short neck, no tenderness CHEST : Decreased breath sounds, no tenderness HEART : RRR, no obvious murmurs ABDOMEN: Some distention, nontender BACK : Low back tenderness with positive SLR, left EXTREMITIES : Minimal LE swelling, no LE tenderness, no other conspicuous deformities noted NEUROLOGIC : Coherent, no facial asymmetry, no other gross focality Principal Diagnosis Back pain, likely muscular strain Discharge Exam GENERAL: WD/WN, obese, M in NAD HEENT: NC/AT. EOMI. [place] palpebral conjunctivae NECK : Supple CHEST : CTAB HEART : RRR, no obvious murmurs ABDOMEN: + bowel sounds, soft, obese, nontender BACK : Low back tenderness, minimal (much improved) EXTREMITIES : Minimal LE swelling, no LE tenderness, moves extremities SKIN: Normal color, warm NEUROLOGIC : awake alert oriented, no facial asymmetry, moves extremities, ambulating Discharge Data Allergies Allergy/AdvReac Type Severity Reaction Status Date / Time No Known Allergies Allergy Unverified 09/26/22 22:45 Consultations 09/27/22 03:35 ED Decision to Admit Stat 09/27/22 12:39 Consult Orthopedic Surgery Routine Ordered Studies 09/27/22 03:56 MRI Lumbar Spine [MR lumbar spine wo con] Stat FINDINGS: The alignment is anatomical. L1-L2: No significant abnormality. L2-L3: Left greater than right posterior disc bulge is seen with mild canal stenosis and mild neuroforaminal stenosis on the left. L3-L4: Broad-based posterior disc bulge is seen with mild bilateral neural foraminal stenosis. L4-L5: Broad-based posterior disc bulge is seen with moderate to severe bilateral neural foraminal stenosis. L5-S1: No significant abnormality. The spinal ligaments are intact, without evidence of disruption or abnormal signal intensity. The spinal cord is normal in signal intensity and there is no evidence of cord contusion. There is no evidence of an extradural, intradural, extramedullary or intramedullary lesion. Visualized soft tissues are normal. IMPRESSION: Multilevel degenerative changes are seen with up to mild canal stenosis and moderate to severe bilateral neural foraminal stenosis. 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 Orthopedics consulted - no need for any surgical intervention, pt back to baseline As outp - [facility]. Recommend tylenol, lidocaine patch, flexeril prn Total Time Total Time Spent Total Time Spent (In Minutes): 35 Discharge Plan Discharge Items Patient Disposition: Home - Self-Care Reason For Visit: BACK PAIN Discharge Diagnosis: Back pain, likely muscular strain Activity: Per Instructions section Non-emergency contact: Primary Care Provider Call non-emergency contact if: you have any medication questions and your s ymptoms worsen Follow-up/Referrals: Robert Pugh MD [Primary Care Provider] - 10/03/22 11:40 am (Date & Time 10/03/2022 11:40 AM Provider Kat Washington MD [facility] ) Diet: Regular Addtl Attending Provider Instructions: Follow-up with primary care doctor, within 1 week, either within the [facility] or [facility]. For pain, you can use Tylenol up to 3000 mg a day. You can use lidocaine patch, this can be often obtained [id number] under the name Salonpas. For more severe pain/spasms, you can take Flexeril 5 mg twice daily as needed. Discuss further with your primary care providers your medication regimen. Pending Studies at Discharge: No Stand-Alone Forms: My [facility], Smoking Cessation Medications and DC Order Prescriptions: New cyclobenzaprine 5 mg tablet 5 mg PO BID PRN (Reason: muscle spasm) Qty: 7 0RF Discharge Orders: Discharge Order (Routine); Ordered 09/28/22 Ordered By: Jan San Admission Data Admit Date/Time: 09/27/22 03:59 Attending Provider: Jan San Admit Provider: Bj Fan Primary Care Provider: Robert Pugh Other Providers: Bj Fan ; Trent Menjivar Niranjan N.
== END 2022-09-28 17:30 | disposition home or self-care (01) ==
LOC: 3E 21:08 → ED 21:08 → SUATTDRO 09-27 03:59 → 3E 09-27 05:13